=== PATIENT | male | born 1995 | race Hispanic/Latino ===

== ENCOUNTER 2022-05-28 19:37 | Emergency (ER) | payer SELFPAY ==
[2022-05-28] MEDS ORDERED: LORAZEPAM 0.5 MG TABLET ONE (19:53)
--- NOTE | 2022-05-28 20:49 | ER ---
Nurse's Notes [facility] Name: Layla Fernando Age: 27 yrs Sex: Male : 1995 Arrival Date: 05/28/2022 Time: 19:38 Bed 9 Private MD: Diagnosis: Hyperventilation Presentation: 05/28 19:48 Chief complaint: Patient states: "My hands started tensing up and cramping and I felt hb weird so I stood up then I felt like I was gonna pass out, now I feel anxious and I dont't feel right." Appears anxious in triage, rambling, but cooperative. Denies recent drug/stimulant use. Coronavirus screen: At this time, the client does not indicate any symptoms associated with coronavirus-19. Ebola Screen: No symptoms or risks identified at this time. Risk Assessment: Do you want to hurt yourself or someone else? Patient reports no desire to harm self or others. Onset of symptoms was May 28, 2022. 19:48 Method Of Arrival: EMS: [facility] hb 19:48 Acuity: ARTEM 3 hb Triage Assessment: 20:51 General: Appears in no apparent distress. Behavior is calm. kd3 Historical: - Allergies: 19:50 No Known Allergies; hb Screenin:51 Abuse screen: Denies threats or abuse. Denies injuries from another. Nutritional kd3 screening: No deficits noted. Tuberculosis screening: No symptoms or risk factors identified. Fall Risk None identified. Assessment: 20:51 General: Appears in no apparent distress. Behavior is calm, pt left prior to being kd3 seen. . Vital Signs: 19:48 BP 132 / 88; Pulse 102; Resp 18; Temp 98.3; Pulse Ox 100% on R/A; Weight 68.04 kg; hb Height 5 ft. 11 in. (180.34 cm); Pain 1/10; 19:48 Body Mass Index 20.92 (68.04 kg, 180.34 cm) hb ED Course: 19:38 Patient arrived in ED. ja2 19:43 Ana Kim FNP-C is PHCP. kb 19:43 Amaury Murdock DO is Attending Physician. kb 19:50 Triage completed. hb 19:50 Arm band placed on. hb 20:51 Karen Downs, RN is Primary Nurse. kd3 Administered Medications: 19:58 Drug: Ativan (LORazepam) 0.5 mg Route: PO; hb 20:51 Follow up: Response: No adverse reaction; Anxiety decreased kd3 Outcome: 20:48 Discharge ordered by . kb 20:52 Patient left the ED. kd3 Signatures: Ana Kim, Luz Marina Johns RN RN Maia Fernandez Kyli, RN RN kd3
--- NOTE | 2022-05-28 20:49 | EDPHYS ---
Physician Documentation [facility] Name: Layla Fernando Age: 27 yrs Sex: Male : 1995 Arrival Date: 05/28/2022 Time: 19:38 Bed 9 Private MD: ED Physician Amaury Murdock HPI: 05/28 19:50 This 27 yrs old Male presents to ER via Unassigned with complaints of Hand Pain. kb 19:50 The patient presents to the emergency department with anxiety. Onset: The kb symptoms/episode began/occurred just prior to arrival. Associated signs and symptoms: Pertinent positives; hand and legs cramping, shortness of breath. Severity of symptoms: At their worst the symptoms were moderate in the emergency department the symptoms are unchanged. The patient has experienced similar episodes in the past. The patient has not recently seen a physician. Pt reports he was in senior living and started feeling weak, then short of breath and his hands and legs started cramping. States "I think i'm having an anxiety attack". Historical: - Allergies: 19:50 No Known Allergies; hb ROS: 19:45 Constitutional: Negative for fever, chills, and weight loss. kb 19:45 Respiratory: Positive for shortness of breath. 19:45 MS/extremity: Positive for hands and legs cramping. 19:45 Psych: Positive for anxiety. 19:45 All other systems are negative. Exam: 19:45 Head/Face: Normocephalic, atraumatic. ENT: Moist Mucous membranes Cardiovascular: kb Regular rate and rhythm with a normal S1 and S2. No gallops, murmurs, or rubs. No pulse deficits. Respiratory: Respirations even and unlabored. No increased work of breathing. Talking in full sentences Abdomen/GI: Soft, non-tender. No distention Skin: Warm, dry with normal turgor. Normal color. Neuro: Awake and alert, GCS 15, oriented to person, place, time, and situation. Moves all extremities. Normal gait. Psych: Awake, alert, with orientation to person, place and time. Behavior, mood, and affect are within normal limits. 19:45 Constitutional: The patient appears alert, awake, anxious. 19:45 Musculoskeletal/extremity: Extremities: grossly normal except: noted in the right hand and left hand: cramping. Vital Signs: 19:48 BP 132 / 88; Pulse 102; Resp 18; Temp 98.3; Pulse Ox 100% on R/A; Weight 68.04 kg; hb Height 5 ft. 11 in. (180.34 cm); Pain 1/10; 19:48 Body Mass Index 20.92 (68.04 kg, 180.34 cm) hb MDM: 19:44 Data reviewed: vital signs, nurses notes. Data interpreted: Pulse oximetry: on room air kb is 100 %. Interpretation: normal. 19:51 Patient medically screened. kb Administered Medications: 19:58 Drug: Ativan (LORazepam) 0.5 mg Route: PO; hb 20:51 Follow up: Response: No adverse reaction; Anxiety decreased kd3 Disposition: 05/29 01:10 Co-signature as Attending Physician, Amaury Murdock DO I was immediately available onsite ms3 in the emergency department for consultation in the care of the patient. Disposition Summary: 05/28/22 20:48 Discharge Ordered Location: Home kb Condition: Stable kb Diagnosis - Hyperventilation kb Followup: kb - With: Emergency Department - When: As needed - Reason: Worsening of condition Followup: kb - With: Private Physician - When: 2 - 3 days - Reason: Recheck today's complaints, Continuance of care, Re-evaluation by your physician Discharge Instructions: - Discharge Summary Sheet kb - Hyperventilation kb - Panic Attack, [id number] kb Forms: - Medication Reconciliation Form kb - Thank You Letter kb - Antibiotic Education kb - Prescription Opioid Use kb Signatures: Ana Kim FNP-C FNP-Ckb Baxter, Heather RN RN Amaury Murdock DO DO ms3 Karen Downs RN kd3
[2022-05-28 21:39] VITALS: BP 132/88; TEMP 98.3; O2SAT 100
== END 2022-05-28 20:52 | disposition home or self-care (01) ==
LOC: ER 19:37
DX: R06.4 Hyperventilation (principal); F41.9 Anxiety disorder, unspecified
CPT/HCPCS: 99283

== ENCOUNTER 2024-02-12 19:01 | Emergency (ER) | payer SELFPAY ==
[2024-02-12 20:08] LABS: Absolute Basophils 0.1 K/uL (0-0.5); Absolute Eosinophils 0.2 K/uL (0-0.5); Absolute Lymphocytes (CBC) 1.5 K/uL (0.7-4.9); Absolute Monocytes 1.2 K/uL (0.1-1.3); Basophils % 0.6 % (0-1.3); Eosinophils % 1.3 % (0-4.4); Hematocrit 44.6 % (39.6-49.0); Hemoglobin 14.7 g/dL (13.6-17.9); Lymphocytes % 10.7 % (15.3-44.8); MCH 31.2 pg (27.0-35.0); MCHC 33.1 g/dL (32.0-36.0); MCV 94.3 fL (80-100); MPV 8.5 fL (7.6-11.3); Monocytes % 8.4 % (3.3-12.3); Platelets 346 thou/uL (152-406); RBC Red Blood Cell Count 4.73 M/uL (4.33-5.43); Red Cell Distribution Width 13.1 % (12.1-15.2)
[2024-02-12] MEDS ORDERED: ACETAMINOPHEN 500 MG TAB ONE (20:08)
[2024-02-12] MEDS ORDERED: NA CHLORIDE 0.9% 1,000 ML ONE (20:09)
[2024-02-12] MEDS ORDERED: METOCLOPRAMIDE 10 MG/2mL INJ ONE (20:09)
[2024-02-12] MEDS ORDERED: KETOROLAC 30 MG/ML INJ ONE (20:09)
--- NOTE | 2024-02-12 20:39 | ER ---
Nurse's Notes [facility] Name: Zulema Fernando Age: 28 yrs Sex: Male : 1995 Arrival Date: 02/12/2024 Time: 19:01 Bed 16 Private MD: Diagnosis: Headache Presentation: 02/11 19:25 Chief complaint: Patient states: Pt c/o head, ears, and eye pain since waking up from a tl4 nap at approx noon today. Coronavirus screen: At this time, the client does not indicate any symptoms associated with coronavirus-19. Ebola Screen: No symptoms or risks identified at this time. Initial Sepsis Screen: Does the patient meet any 2 criteria? No. Patient's initial sepsis screen is negative. Does the patient have a suspected source of infection? No. Patient's initial sepsis screen is negative. Risk Assessment: Do you want to hurt yourself or someone else? Patient reports no desire to harm self or others. Onset of symptoms was February 12, 2024 at 12:00. 19:25 Method Of Arrival: Ambulatory tl4 19:25 Acuity: ARTEM 3 tl4 Triage Assessment: 19:27 Headache History: Denies prior headaches. General: Appears uncomfortable, Behavior is tl4 calm, cooperative. Pain: Complains of pain in face, scalp, right ear, left ear, right eye and left eye. Pain: Pain currently is 6 out of 10 on a pain scale. Pain began suddenly, Also complains of no other associated symptoms. EENT: No signs and/or symptoms were reported regarding the EENT system. Neuro: Level of Consciousness is awake, alert, obeys commands, Oriented to person, place, time, situation, Moves all extremities. Full function Gait is steady, Speech is normal. Cardiovascular: Capillary refill < 3 seconds Patient's skin is warm and dry. Respiratory: Airway is patent Respiratory effort is even, unlabored, Respiratory pattern is regular, symmetrical, Breath sounds are clear bilaterally. GI: Reports nausea. : No signs and/or symptoms were reported regarding the genitourinary system. Derm: No signs and/or symptoms reported regarding the dermatologic system. Musculoskeletal: No signs and/or symptoms reported regarding the musculoskeletal system. Historical: - Allergies: 19:26 No Known Allergies; tl4 - Home Meds: 19:26 None [Active]; tl4 - PMHx: 19:26 Meningitis; tl4 - PSHx: 19:26 None; tl4 - Immunization history:: Adult Immunizations unknown. - Infectious Disease History:: meningitis. - Social history:: Smoking status: Patient denies any tobacco usage or history of. Screenin:38 [facility] ED Fall Risk Assessment (Adult) History of falling in the last 3 months, kj2 including since admission No falls in past 3 months (0 pts) Confusion or Disorientation No (0 pts) Intoxicated or Sedated No (0 pts) Impaired Gait No (0 pts) Mobility Assist Device Used No (0 pt) Altered Elimination No (0 pt) Score/Fall Risk Level 0 - 2 = Low Risk Oriented to surroundings, Maintained a safe environment, Hourly rounding (assess needs \T\ fall precautionary measures) done. Abuse screen: Denies threats or abuse. Denies injuries from another. Nutritional screening: No deficits noted. Tuberculosis screening: No symptoms or risk factors identified. Assessment: 20:33 General: Appears in no apparent distress. slender, Behavior is calm, cooperative. Pain: kj2 Complains of pain in headache. Neuro: Level of Consciousness is awake, alert, obeys commands, Oriented to person, place, time, situation. Cardiovascular: No deficits noted. Capillary refill < 3 seconds in bilateral Patient's skin is warm and dry. Respiratory: No deficits noted. : No deficits noted. Vital Signs: 19:25 BP 116 / 73; Pulse 70; Resp 16; Temp 99.8(O); Pulse Ox 100% on R/A; Weight 72.57 kg; tl4 Height 5 ft. 11 in. ; Pain 6/10; 20:28 BP 124 / 80; Pulse 74; Resp 18; Pulse Ox 98% on R/A; kj2 19:25 Body Mass Index 22.32 (72.57 kg, 180.34 cm) tl4 19:25 Pain Scale: Adult tl4 ED Course: 19:03 Patient arrived in ED. mr 19:24 Orlando Johnson MD is Attending Physician. ec2 19:26 Triage completed. tl4 19:29 Arm band placed on left wrist. tl4 19:31 Kelly Carcamo, MEGHAN is Primary Nurse. nj1 20:09 Attending Physician role handed off by Orlando Johnson MD sp4 20:09 Prabhakar Sal MD is Attending Physician. sp4 20:27 Inserted saline lock: 20 gauge in right antecubital area, using aseptic technique. kj2 Blood collected. 20:37 Attending Physician role handed off by Prabhakar Sal MD ec2 20:37 Orlando Johnson MD is Attending Physician. ec2 20:40 Patient has correct armband on for positive identification. Bed in low position. Call kj2 light in reach. Side rails up X 1. Provided Education on: call light, medication, safety. 20:43 No provider procedures requiring assistance completed. kj2 20:43 IV discontinued, intact, bleeding controlled, Pressure dressing applied. kj2 Administered Medications: 20:10 Drug: Acetaminophen PO 1000 mg PO once Route: PO; kj2 20:45 Follow up: Response: No adverse reaction kj2 20:12 Drug: metoCLOPramide IVP 10 mg IVP once; over 1 to 2 minutes Route: IVP; Site: right kj2 antecubital; 20:46 Follow up: Response: No adverse reaction kj2 20:15 Drug: NS 0.9% IV 1000 ml IV at 1 bolus Per protocol; 1000 mL bolus Route: IV; Rate: 1 kj2 bolus; Site: right antecubital; 20:47 Follow up: Response: No adverse reaction; IV Status: Order to discontinue infusion; IV kj2 Intake: 300ml 20:30 Drug: Ketorolac IVP 15 mg IVP once Route: IVP; Site: right antecubital; kj2 20:45 Follow up: Response: No adverse reaction kj2 Medication: 20:43 VIS not applicable for this client. kj2 Intake: 20:47 IV: 300ml; Total: 300ml. kj2 Outcome: 20:38 Discharge ordered by . ec2 20:44 Discharged to home ambulatory, kj2 20:44 Condition: stable 20:44 Discharge instructions given to patient, Instructed on discharge instructions, follow up and referral plans. Demonstrated understanding of instructions, follow-up care, 20:47 Patient left the ED. kj2 Signatures: Destiny Salomon, Reg Reg mr Prabhakar Sal MD MD sp4 Kelly Carcamo RN RN nj1 Orlando Johnson MD MD ec2 Brian Goldman RN RN tl4 Kandis Crane RN RN kj2 Corrections: (The following items were deleted from the chart) 19: 19:26 Home Meds: Unable to obtain; tl4 tl4
--- NOTE | 2024-02-12 20:39 | EDPHYS ---
Physician Documentation [facility] Name: Zulema Fernando Age: 28 yrs Sex: Male : 1995 Arrival Date: 02/12/2024 Time: 19:01 Bed 16 Private MD: ED Physician Orlando Johnson HPI: 02/11 19:31 This 28 yrs old Male presents to ER via Ambulatory with complaints of Headache.ec2 19:31 Patient arrives today for evaluation of a generalized headache. Patient reports that he ec2 has been experiencing his headache for the past several hours. Patient reports pain in the front of the head as well as the back of the head. Denies any falls injuries or trauma. Patient reports that he has had no cough or cold symptoms, no congestion. Reports some nausea, no vomiting. Denies any neck pain.. Historical: - Allergies: 19:26 No Known Allergies; tl4 - Home Meds: 19:26 None [Active]; tl4 - PMHx: 19:26 Meningitis; tl4 - PSHx: 19:26 None; tl4 - Immunization history:: Adult Immunizations unknown. - Infectious Disease History:: meningitis. - Social history:: Smoking status: Patient denies any tobacco usage or history of. ROS: 19:32 Constitutional: as per hpi ec2 Exam: 19:32 Constitutional: GEN: NAD Head: atraumatic Eyes: EOMI Ears: External ears are ec2 normal. CV: regular rate LUNGS: no respiratory distress ABD: non-distended SKIN: no evidence of rashes MSK: no evidence of trauma NEURO: moves all extremities equally, cranial nerves II through XII intact, strength intact all 4 extremities, no pronator drift, normal gait, no neck stiffness, no neck rigidity Vital Signs: 19:25 BP 116 / 73; Pulse 70; Resp 16; Temp 99.8(O); Pulse Ox 100% on R/A; Weight 72.57 kg; tl4 Height 5 ft. 11 in. ; Pain 6/10; 20:28 BP 124 / 80; Pulse 74; Resp 18; Pulse Ox 98% on R/A; kj2 19:25 Body Mass Index 22.32 (72.57 kg, 180.34 cm) tl4 19:25 Pain Scale: Adult tl4 MDM: 19:27 Patient medically screened. ec2 19:32 Data reviewed: vital signs. ec2 20:37 ED course: On reassessment patient reports marked improvement in symptoms. Will ec2 discharge home. Return precautions given. 20:38 ED course: Patient reports symptoms are markedly improved and did not want to wait for ec2 further testing. . 20:38 ED course: Ultimately I suspect viral infection causing the patient's symptoms. Doubt ec2 meningitis given patient's reassuring examination. Does have leukocytosis on CBC. 02/11 19:31 Order name: Basic Metabolic Panel ec2 02/11 19:31 Order name: CBC with Diff; Complete Time: 20:38 ec2 02/11 19:31 Order name: Influenza Screen (a \T\ B) ec2 02/11 19:31 Order name: SARS RAPID ec2 02/11 19:31 Order name: IV Saline Lock; Complete Time: 20:33 ec2 02/11 19:31 Order name: Labs collected and sent; Complete Time: 20:33 ec2 02/11 19:31 Order name: O2 Per Protocol; Complete Time: 19:36 ec2 02/11 19:31 Order name: O2 Sat Monitoring; Complete Time: 19:36 ec2 Administered Medications: 20:10 Drug: Acetaminophen PO 1000 mg PO once Route: PO; kj2 20:45 Follow up: Response: No adverse reaction kj2 20:12 Drug: metoCLOPramide IVP 10 mg IVP once; over 1 to 2 minutes Route: IVP; Site: right kj2 antecubital; 20:46 Follow up: Response: No adverse reaction kj2 20:15 Drug: NS 0.9% IV 1000 ml IV at 1 bolus Per protocol; 1000 mL bolus Route: IV; Rate: 1 kj2 bolus; Site: right antecubital; 20:47 Follow up: Response: No adverse reaction; IV Status: Order to discontinue infusion; IV kj2 Intake: 300ml 20:30 Drug: Ketorolac IVP 15 mg IVP once Route: IVP; Site: right antecubital; kj2 20:45 Follow up: Response: No adverse reaction kj2 Disposition Summary: 02/12/24 20:38 Discharge Ordered Notes: Location: Home ec2 Condition: Stable ec2 Diagnosis - Headache ec2 Followup: ec2 - With: Private Physician - When: - Reason: Re-evaluation by your physician Discharge Instructions: - Discharge Summary Sheet ec2 - General Headache Without Cause, [id number] ec2 Forms: - Medication Reconciliation Form ec2 - Antibiotic Education ec2 - Prescription Opioid Use ec2 - Patient Portal Instructions ec2 - Leadership Thank You Letter ec2 Signatures: Dispatcher [employer] EDOrlando Queen MD MD ec2 Brian Goldman RN RN tl4 Kandis Crane RN RN kj2 Corrections: (The following items were deleted from the chart) 19:27 19:26 Home Meds: Unable to obtain; tl4 tl4 20:38 20:10 Transition of care: After a detail discussion of the patient's case, care is ec2 transferred to Prabhakar Sal MD ec2 20:38 20:10 ED course: Patient signed out to oncoming physician with pending lab work and ec2 reassessment.. ec2
[2024-02-12 20:58] VITALS: BP 124/80; TEMP 99.8; O2SAT 98
[2024-02-12 21:07] LABS: SARS-CoV-2 Antigen CONTROL BLUE LINE VIS/BG OK; SARS-CoV-2 Antigen Rapid Res Negative (Negative)
[2024-02-12 21:19] LABS: Anion Gap 6.5 mEq/L (5.0-15.0); Potassium 3.5 mEq/L (3.5-5.1)
== END 2024-02-12 20:47 | disposition home or self-care (01) ==
LOC: ER 19:01
DX: R51.9 Headache, unspecified (principal); Z11.52 Encounter for screening for COVID-19
CPT/HCPCS: 36415; 80048; 85025; 87804; 87811; J2765; J7030